=== PATIENT | male | born 1995 | race Caucasian/White ===

== ENCOUNTER → 2016-12-31 | Outpatient (CLI) | payer OTHER ==
[~2016-12-31] MED LIST: ADDERALL XR20 MG PO; BENTYL 20MG20 MG/TAB PO; CARAFATE 1GM1 G PO; MAGIC MOUTHWASH1 M1 PO; PHENERGAN 25 TA25 MG PO; PRILOSEC 20MG20 MG PO; PROAIR HFA0.09 MG/AC IH; ULTRAM 50MG TAB50 MG PO; XIFAXAN550 MG PO
== END ==
LOC: COL.RAD 14:50
DX: R10.84 Generalized abdominal pain (principal)

== ENCOUNTER 2017-01-19 14:28 | Day surgery (SDC) | payer OTHER ==
[~2017-01-19] VITALS: Ht 182.9 cm; Wt 74.8 kg
[~2017-01-19 14:28] MED LIST changes: -ADDERALL XR20 MG PO; -CARAFATE 1GM1 G PO; -MAGIC MOUTHWASH1 M1 PO; -PRILOSEC 20MG20 MG PO; -PROAIR HFA0.09 MG/AC IH; -XIFAXAN550 MG PO
[2017-01-19 14:56] VITALS: BP 114/71; PULSE 87; TEMP 98.6
[2017-01-19] MEDS ORDERED: CARAFATE 1GM1 G PO (15:10)
[2017-01-19] MEDS ORDERED: PRILOSEC 20MG20 MG PO (15:10)
[2017-01-19 15:45] VITALS: BP 123/69; PULSE 73; TEMP 98.5
[2017-01-19 16:00] VITALS: BP 116/62; PULSE 79
[2017-01-19 16:15] VITALS: BP 112/67; PULSE 78
== END 2017-01-19 16:25 | disposition home or self-care (01) ==
LOC: SDCO 14:28
DX: K29.50 Unspecified chronic gastritis without bleeding (principal); K58.9 Irritable bowel syndrome, unspecified; Z83.79 Family history of other diseases of the digestive system
CPT/HCPCS: OP; J2250; J2405; J3010; J7030

== ENCOUNTER 2017-02-12 16:03 | Emergency (ER) | payer OTHER ==
[~2017-02-12] VITALS: Ht 182.9 cm; Wt 70.5 kg
[~2017-02-12 16:03] MED LIST changes: +CARAFATE 1GM1 G PO; +PRILOSEC 20MG20 MG PO
[2017-02-12 16:08] VITALS: BP 125/78; TEMP 98.3
[2017-02-12] MEDS ORDERED: ADDERALL XR20 MG PO (16:08)
[2017-02-12] MEDS ORDERED: XIFAXAN550 MG PO (16:20)
[2017-02-12] MEDS ORDERED: PROAIR HFA0.09 MG/AC IH (16:21)
[2017-02-12] MEDS ORDERED: MAGIC MOUTHWASH1 M1 PO (16:22)
[2017-02-12 17:50] VITALS: PULSE 69
== END 2017-02-12 17:55 | disposition home or self-care (01) ==
LOC: COL.ER 16:03
DX: J06.9 Acute upper respiratory infection, unspecified (principal); F41.9 Anxiety disorder, unspecified; R06.4 Hyperventilation; F17.210 Nicotine dependence, cigarettes, uncomplicated
CPT/HCPCS: J1885

== ENCOUNTER 2017-03-21 16:34 | Inpatient (IN) | payer OTHER ==
[~2017-03-21] VITALS: Ht 182.9 cm; Wt 67.6 kg
[2017-03-21] VITALS (34 sets, daily range): O2SAT 97–100
[~2017-03-21 16:34] MED LIST changes: +ADDERALL XR20 MG PO; +MAGIC MOUTHWASH1 M1 PO; +PROAIR HFA0.09 MG/AC IH; +XIFAXAN550 MG PO
[2017-03-21 17:56] LABS: BASO # 0.1 (0.0-0.2); BASO % 0.8 % (0.0-2.0); EOS % 0.4 % (0-4.0); GRAN # 5.6 (1.4-6.5); GRAN % 72.1 % (42.2-75.2); HEMATOCRIT 38.9 % (42.0-52.0); HEMOGLOBIN 13.8 g/dl (13.5-18.0); LYMPH # 1.6 (1.2-3.4); LYMPH % 20.9 % (20.0-51.0); MEAN CELL VOLUME 88 fl (80.0-100.0); MEAN CORPUSCULAR HEMOGLOBIN 31 pg (27.0-31.0); MEAN CORPUSCULAR HGB CONC 36 g/dl (33.0-37.0); MEAN PLATELET VOLUME 8.7 fl (7.4-10.4); MONO # 0.4 (0.1-0.6); MONO % 5.5 % (1.7-9.3); PLATELET COUNT 257 K/mm3 (130-400); RED BLOOD COUNT 4.41 M/mm3 (4.20-5.60); WHITE BLOOD COUNT 7.7 K/mm3 (4.8-10.8)
[2017-03-21 18:09] LABS: ADJUSTED CALCIUM 9.1 mg/dL (8.4-10.2); ALANINE AMINOTRANSFERASE 25 U/L (21-72); ALBUMIN 4.8 gm/dL (3.5-5.0); ALKALINE PHOSPHATASE 49 U/L (50-136); ANION GAP 11 mmol/L (7-16); BLOOD UREA NITROGEN 6 mg/dL (9-20); CALCIUM 9.7 mg/dL (8.4-10.2); CARBON DIOXIDE 24 mmol/L (22-30); CHLORIDE 103 mmol/L (98-107); CREATININE, serum 0.63 mg/dL (0.66-1.25); GLUCOSE 83 mg/dL (74-106); POTASSIUM 3.9 mmol/L (3.4-5.0); SODIUM 138 mmol/L (137-145); TOTAL PROTEIN 7.6 gm/dL (6.4-8.2)
[2017-03-21 18:20] LABS: C-REACTIVE PROTEIN < 0.5 mg/dL (0.0-0.9)
[2017-03-21 19:52] LABS: COLLECTION METHOD CLEAN CATCH
[2017-03-21 19:58] LABS: PH 7 (5-8); SQUAMOUS EPITHELIAL 0-2 /hpf; URINE APPEARANCE Clear; URINE BACTERIA None Seen /hpf; URINE BILIRUBIN Negative (NEGATIVE); URINE BLOOD Negative (NEGATIVE); URINE COLOR Yellow; URINE GLUCOSE Negative (NEGATIVE); URINE KETONE Negative (NEGATIVE); URINE LEUKOCYTE ESTERASE 1+ (NEGATIVE); URINE PROTEIN(semi-quant) Negative (NEGATIVE); URINE RBC 0-2 /hpf; URINE UROBILINOGEN Negative (NEGATIVE)
[2017-03-21 20:06] LABS: AMPHETAMINE URINE POSITIVE; BARBITURATES URINE NEGATIVE; BENZODIAZEPINES URINE NEGATIVE; BUPRENORPHINE URINE NEGATIVE; METHADONE URINE NEGATIVE; OPIATES URINE NEGATIVE; OXYCODONE URINE NEGATIVE; PHENCYCLIDINE URINE NEGATIVE; PROPOXYPHENE URINE NEGATIVE; THC CANNABINOIDS URINE POSITIVE; TRICYCLIC ANTIDEPRESS URINE NEGATIVE
[2017-03-21] MEDS ORDERED: ZOFRAN ODT4 MG PO (20:15)
[2017-03-22] VITALS (126 sets, daily range): BP systolic 101–135; BP diastolic 57–77; PULSE 60–116; TEMP 97–98.6; O2SAT 92–100
[2017-03-22] MEDS ORDERED: PHENERGAN 25 TA25 MG PO (02:00)
[2017-03-22] MEDS ORDERED: SINGULAIR 110 MG/TAB PO (02:03)
[2017-03-22] MEDS ORDERED: BENTYL 20MG20 MG/TAB PO (02:06)
[2017-03-22] MEDS ORDERED: ZOFRAN8 MG PO (02:08)
[2017-03-22] MEDS ORDERED: ANASPAZ (02:29)
[2017-03-22 06:47] LABS: BASO % 0.7 % (0.0-2.0); EOS # 0.1 (0.0-0.7); EOS % 1.9 % (0-4.0); GRAN # 2.9 (1.4-6.5); GRAN % 50.2 % (42.2-75.2); HEMOGLOBIN 12.5 g/dl (13.5-18.0); LYMPH # 2.2 (1.2-3.4); LYMPH % 37.9 % (20.0-51.0); MEAN CELL VOLUME 89 fl (80.0-100.0); MEAN CORPUSCULAR HEMOGLOBIN 31 pg (27.0-31.0); MEAN CORPUSCULAR HGB CONC 35 g/dl (33.0-37.0); MEAN PLATELET VOLUME 8.9 fl (7.4-10.4); MONO # 0.5 (0.1-0.6); MONO % 9.1 % (1.7-9.3); PLATELET COUNT 216 K/mm3 (130-400); WHITE BLOOD COUNT 5.8 K/mm3 (4.8-10.8)
[2017-03-22 06:53] LABS: HEMATOCRIT 35.6 % (42.0-52.0)
[2017-03-22 07:01] LABS: CALCIUM 9.3 mg/dL (8.4-10.2); CREATININE, serum 0.61 mg/dL (0.66-1.25); POTASSIUM 3.5 mmol/L (3.4-5.0)
[2017-03-24 13:15] LABS: ZINC,S 0.62 mcg/mL (())
== END 2017-03-23 00:14 | disposition home or self-care (01) | DRG 93 ==
LOC: COL.ER 16:34 → ICU 20:41 → MEDICAL 03-22 15:15
PROVIDERS: Nurse Practitioner; Psychiatry & Neurology Neurology
DX: F95.8 Other tic disorders (principal); F17.210 Nicotine dependence, cigarettes, uncomplicated; F12.10 Cannabis abuse, uncomplicated; B96.89 Other specified bacterial agents as the cause of diseases classified elsewhere
CPT/HCPCS: OP; 99223-AI; A9585; G0378; J2060; J7030

== ENCOUNTER 2017-08-28 19:30 | Emergency (ER) | payer OTHER ==
[~2017-08-28] VITALS: Ht 182.9 cm; Wt 72.7 kg
[~2017-08-28 19:30] MED LIST changes: +ANASPAZ; +SINGULAIR 110 MG/TAB PO; +ZOFRAN ODT4 MG PO; +ZOFRAN8 MG PO
[2017-08-28 19:31] VITALS: BP 134/79; PULSE 58
[2017-08-28 19:41] VITALS: TEMP 98.7
[2017-08-28 20:01] LABS: BASO % 0.3 % (0.0-2.0); GRAN # 12.7 (1.4-6.5); GRAN % 88.3 % (42.2-75.2); HEMATOCRIT 42.8 % (42.0-52.0); HEMOGLOBIN 15.2 g/dl (13.5-18.0); LYMPH # 0.7 (1.2-3.4); LYMPH % 5.2 % (20.0-51.0); MEAN CELL VOLUME 89 fl (80.0-100.0); MEAN CORPUSCULAR HEMOGLOBIN 32 pg (27.0-31.0); MEAN CORPUSCULAR HGB CONC 36 g/dl (33.0-37.0); MEAN PLATELET VOLUME 8.5 fl (7.4-10.4); MONO # 0.9 (0.1-0.6); MONO % 5.9 % (1.7-9.3); PLATELET COUNT 245 K/mm3 (130-400); RED BLOOD COUNT 4.82 M/mm3 (4.20-5.60); REDCELL DISTRIBUTION WIDTH-CV 12.6 % (11.5-14.5)
[2017-08-28 20:14] LABS: ALANINE AMINOTRANSFERASE 41 U/L (21-72); ALKALINE PHOSPHATASE 51 U/L (50-136); ANION GAP 14 mmol/L (7-16); AST,SGOT 26 U/L (15-37); BILIRUBIN,TOTAL 1.8 mg/dL (0.0-1.0); BLOOD UREA NITROGEN 8 mg/dL (9-20); CALCIUM 9.6 mg/dL (8.4-10.2); CARBON DIOXIDE 29 mmol/L (22-30); CHLORIDE 99 mmol/L (98-107); CREATININE, serum 0.65 mg/dL (0.66-1.25); GLUCOSE 104 mg/dL (74-106); LIPASE 46 U/L (23-300); SODIUM 141 mmol/L (137-145); TOTAL PROTEIN 7.9 gm/dL (6.4-8.2)
[2017-08-28 20:20] LABS: C-REACTIVE PROTEIN < 0.5 mg/dL (0.0-0.9)
[2017-08-28] MEDS ORDERED: NORCO 325 MG-51 TAB PO (21:30)
== END 2017-08-28 21:45 | disposition home or self-care (01) ==
LOC: COL.ER 19:30
PROVIDERS: Emergency Medicine
DX: R10.84 Generalized abdominal pain (principal); R11.2 Nausea with vomiting, unspecified; K58.9 Irritable bowel syndrome, unspecified; Z87.891 Personal history of nicotine dependence; Z90.89 Acquired absence of other organs; Z88.1 Allergy status to other antibiotic agents
CPT/HCPCS: J2060; J2405; J2550; J3010; J7030; Q9967